=== PATIENT | female | born 1955 | race African-American/Black ===

== ENCOUNTER → 2016-03-29 | Outpatient (CLI) | payer OTHER ==
[~2016-03-29] MED LIST: ADAL40PE SQ; ERGO500012 PO; LISI10TA2 PO; MELO-156 PO; METO-269 PO; PRAV20TA2 PO; SPIR25TA3 PO; TORS20TA2 PO
--- NOTE | 2016-03-29 14:02 | KCIC ---
Bilateral digital screening mammograms with CAD: HISTORY Routine screening. COMPARISON Comparison is made to previous study dated 07/17/2013. FINDINGS Breast density category A. The skin and nipples show no abnormalities. No abnormal lymph nodes are seen in the axilla. The breast parenchyma is predominately fatty. There are no dominant masses, suspicious calcifications or architectural distortions. IMPRESSION No evidence of malignancy. Recommend routine annual mammographic screening. This study was interpreted with the benefit of Computerized Aided Detection (CAD). Mammography is not 100% sensitive in detecting breast cancer. Therefore, a self breast exam and a clinical breast exam are very important. A negative mammogram does not negate a clinically suspicious finding and should not result in a delay in biopsying a clinically suspicious abnormality. BI-RADS category 1. Negative. This patient's information has been entered into a reminder system for the patient to be notified with the results of this examination and a target date for her next mammograms. Electronically signed by: Mercedes Goodwin MD (Mar 29, 2016 14:00:31)
== END | disposition home or self-care (01) ==
LOC: KCIC MAMMO 09:34
PROVIDERS: ATTEND Family Medicine
DX: Z12.31 Encounter for screening mammogram for malignant neoplasm of breast (principal)
CPT/HCPCS: 77052; G0202

== ENCOUNTER → 2016-04-04 | Outpatient (CLI) | payer OTHER ==
[2016-04-01 14:24] VITALS: BP 141/55
[~2016-04-04] MED LIST changes: +IOHEXOL 300 MG/ML 100ML VIAL. IV ONE
--- NOTE | 2016-04-04 16:54 | RAD ---
CT pulmonary angiogram with contrast History: Shortness of breath and chest pain for 5 days. Comparison: None. Technique: Helical CT angiogram of the chest with attention to the pulmonary arteries was performed after the administration of intravenous contrast, 75 mL Omnipaque 300. Axial 2-D reconstructions were obtained. Coronal 3-D MIPS were also obtained. One or more of the following individualized dose reduction techniques were utilized for the study: Automated exposure control Adjustment of mA and/or kV according to patient's size Use of iterative reconstruction technique. Findings: Pulmonary arteries are adequately opacified. There is no evidence of pulmonary embolism. Mild aortic atherosclerosis is present. Heart and pericardium are unremarkable. No pneumothorax or pleural effusion is seen. Trachea and mainstem bronchi appear patent. Mild atelectasis versus scarring is seen in the lingula. Both lower lobes demonstrate mild, somewhat geographic areas of nonspecific groundglass opacity. Additional foci of groundglass opacity can be seen involving the left upper lobe. Left adrenal gland demonstrates 2.2 cm lipid rich adenoma. Left hepatic lobe demonstrates a few small low-attenuation lesions, which are not adequately characterized on this examination. Multiple thoracic levels demonstrate marginal disc osteophytes. Impression: 1. No evidence of pulmonary embolism. 2. Both lungs demonstrate mild nonspecific groundglass opacity, which could represent asymmetric atelectasis versus mild nonspecific infectious process.
== END | disposition home or self-care (01) ==
LOC: CT 15:35
PROVIDERS: ATTEND Family Medicine
DX: I70.0 Atherosclerosis of aorta (principal); R06.02 Shortness of breath; R91.8 Other nonspecific abnormal finding of lung field; D35.02 Benign neoplasm of left adrenal gland
CPT/HCPCS: 71275; Q9967

== ENCOUNTER → 2017-06-06 | Outpatient (CLI) | payer OTHER | END | disposition home or self-care (01) | LOC: KCIC US 07:50 | DX: K76.89 Other specified diseases of liver (principal) | CPT/HCPCS: 76700 ==

== ENCOUNTER → 2017-06-29 | Outpatient (CLI) | payer OTHER ==
[2017-06-29] MEDS: IOHEXOL 300 MG/ML 100ML VIAL. IV (14:21)
[2017-06-29] MEDS: IOHEXOL 240 MG/ML 50ML VIAL. PO (14:21)
== END | disposition home or self-care (01) ==
LOC: KCIC CT 12:58
DX: K76.89 Other specified diseases of liver (principal); I10 Essential (primary) hypertension; Z87.442 Personal history of urinary calculi; Z87.891 Personal history of nicotine dependence
CPT/HCPCS: 74177; Q9966; Q9967

== ENCOUNTER → 2017-09-01 | Outpatient (CLI) | payer OTHER ==
[2017-09-01] MEDS: SINCALIDE 2 MCG in IV NORMAL SALINE 50ML 30 ML IV (09:48)
== END | disposition home or self-care (01) ==
LOC: US 07:37
DX: N13.39 Other hydronephrosis (principal); I10 Essential (primary) hypertension; R56.9 Unspecified convulsions; Z79.01 Long term (current) use of anticoagulants; Z87.891 Personal history of nicotine dependence
CPT/HCPCS: 76705; 78226; 96374; 96375; A9537; J2805

== ENCOUNTER 2017-09-26 14:56 | Emergency (ER) | payer OTHER ==
[2017-09-26 15:52] LABS: BILIRUBIN,URINE NEGATIVE (NEG); CLARITY,URINE CLEAR; COLOR,URINE YELLOW; GLUCOSE,URINE NEGATIVE (NEG); NITRITE,URINE NEGATIVE (NEG); PH,URINE 6.5; PROTEIN,URINE NEGATIVE (NEG-TRACE)
[2017-09-26 16:00] LABS: BACTERIA,URINE FEW /HPF (0-FEW); RBC,URINE >40 /HPF (0-2); SQUAMOUS EPITHELIAL CELL,UR FEW /LPF
[2017-09-26] MEDS: fentaNYL PF VIAL 100 MCG/2 ML VIAL IV (16:00)
[2017-09-26 16:05] LABS: ADD MAN DIFF? NO
[2017-09-26 16:07] LABS: BASO # 0.1 x10^3/uL (0.0-0.2); BASO % 1 % (0-3); EOS # 0.5 x10^3/uL (0.0-0.7); EOS % 5 % (0-3); HEMATOCRIT 40.7 % (36.0-47.0); HEMOGLOBIN 13.7 g/dL (12.0-15.5); LYMPH # 3.9 x10^3/uL (1.0-4.8); LYMPH % 39 % (24-48); MEAN CORPUSCULAR HEMOGLOBIN 26 pg (25-35); MEAN CORPUSCULAR HGB CONC 34 g/dL (31-37); MEAN CORPUSCULAR VOLUME 77 fL (79-100); MONO # 0.6 x10^3/uL (0.0-1.1); MONO % 6 % (0-9); NEUT % 50 % (31-73); PLATELET COUNT 225 x10^3/uL (140-400); RED BLOOD COUNT 5.28 x10^6/uL (3.50-5.40); RED CELL DISTRIBUTION WIDTH 14.2 % (11.5-14.5)
[2017-09-26 16:15] LABS: ANION GAP 7 (6-14); BLOOD UREA NITROGEN 14 mg/dL (7-20); BUN/CREATININE RATIO 13 (6-20); CALCIUM 8.9 mg/dL (8.5-10.1); CARBON DIOXIDE 27 mmol/L (21-32); CHLORIDE 103 mmol/L (98-107); CREATININE 1.1 mg/dL (0.6-1.0); GFR 61.5; GLUCOSE 86 mg/dL (70-99); POTASSIUM 3.5 mmol/L (3.5-5.1); SODIUM 137 mmol/L (136-145)
[2017-09-26 16:21] LABS: ALBUMIN 3.4 g/dL (3.4-5.0); ALBUMIN/GLOBULIN RATIO 0.8 (1.0-1.7); ALK PHOS 99 U/L (46-116); ALT (SGPT) 18 U/L (14-59); AST (SGOT) 13 U/L (15-37); LIPASE 109 U/L (73-393); TOTAL BILIRUBIN 0.3 mg/dL (0.2-1.0); TOTAL PROTEIN 7.5 g/dL (6.4-8.2)
== END 2017-09-26 17:15 | disposition home or self-care (01) ==
LOC: ER 14:56
DX: N13.30 Unspecified hydronephrosis (principal); I10 Essential (primary) hypertension; E78.00 Pure hypercholesterolemia, unspecified; Z86.73 Personal history of transient ischemic attack (TIA), and cerebral infarction without residual deficits; Z90.710 Acquired absence of both cervix and uterus; Z88.1 Allergy status to other antibiotic agents
CPT/HCPCS: 36415; 80053; 81001; 83690; 85025; 99284

== ENCOUNTER → 2017-09-26 | Outpatient (CLI) | payer OTHER ==
[2017-09-26] MEDS: FUROSEMIDE 40 MG/4 ML VIAL. IVP (08:54)
== END | disposition home or self-care (01) ==
LOC: NM 08:03
DX: N13.39 Other hydronephrosis (principal); I10 Essential (primary) hypertension; E78.00 Pure hypercholesterolemia, unspecified
CPT/HCPCS: 78708; 96374; 96375; A9562; J1940

== ENCOUNTER → 2017-09-29 | Day surgery (SDC) | payer OTHER ==
[~2017-09-29] MED LIST changes: -ADAL40PE SQ; +DESFLURANE 31 TO 60 MINUTES IH; +DEXAMETHASONE SOD PHOS 20 MG/5 ML VIAL.; -ERGO500012 PO; +FAMOTIDINE 20 MG/2 ML VIAL; -IOHEXOL 300 MG/ML 100ML VIAL. IV ONE; +IV RINGERS,LACTATED 1000ML 1,000 ML IV; +KETAMINE HCL 500 MG/10 ML VIAL.; +KETOROLAC 30 MG/ML INJ FOR OR. INJ; +LIDOCAINE 1% PF 2 ML VIAL. ID; +LIDOCAINE 2% JELLY 6ML IN APPLICATOR.; +LIDOCAINE 2% PF Vial for OR 5 ML VIAL.; -LISI10TA2 PO; -MELO-156 PO; -METO-269 PO; +MIDAZOLAM HCL/PF 2 MG/2 ML VIAL.; +MORPHINE SULFATE 2 MG/ML DISP.SYRIN. IV; +ONDANSETRON PF 4 MG/2 ML VIAL.; +ONDANSETRON PF 4 MG/2 ML VIAL. IV; -PRAV20TA2 PO; +PROCHLORPERAZINE 10 MG/2 ML VIAL. IV; +PROPOFOL 20 ML IV; -SPIR25TA3 PO; +SULFAMETH/TRIMETH 20 ML in IV DEXTROSE 5% 500 ML IV; -TORS20TA2 PO; +fentaNYL PF VIAL 100 MCG/2 ML VIAL IV
[2017-09-29] MEDS: IV RINGERS,LACTATED 1000ML 1,000 ML IV (12:50)
[2017-09-29] MEDS: hydrALAZINE 20 MG/ML VIAL. IVP ×2 (14:50→15:20)
[2017-09-29] MEDS: IOHEXOL 300 MG/ML 100ML VIAL. (15:26)
== END | disposition home or self-care (01) ==
LOC: SURG 12:05
DX: N13.30 Unspecified hydronephrosis (principal); J44.9 Chronic obstructive pulmonary disease, unspecified; I10 Essential (primary) hypertension; E78.00 Pure hypercholesterolemia, unspecified; M06.9 Rheumatoid arthritis, unspecified; Z87.440 Personal history of urinary (tract) infections; Z88.8 Allergy status to other drugs, medicaments and biological substances; Z90.5 Acquired absence of kidney; Z90.710 Acquired absence of both cervix and uterus; Z98.890 Other specified postprocedural states; Z98.51 Tubal ligation status; Z87.891 Personal history of nicotine dependence; Z87.01 Personal history of pneumonia (recurrent); Z87.442 Personal history of urinary calculi; Z86.73 Personal history of transient ischemic attack (TIA), and cerebral infarction without residual deficits
CPT/HCPCS: 52332; 74420; A7015; C1769; C2617; J0360; J1100; J1885; J2001; J2250; J2405; J2704; J3490; J7120; Q9967; S0028

== ENCOUNTER → 2017-12-26 | Outpatient (CLI) | payer OTHER ==
[2017-09-29 15:36] VITALS: BP 156/82
[~2017-12-26] MED LIST changes: +ADAL40PE SQ; +ASPI-630 PO; -DESFLURANE 31 TO 60 MINUTES IH; -DEXAMETHASONE SOD PHOS 20 MG/5 ML VIAL.; +ERGO500027 PO; -FAMOTIDINE 20 MG/2 ML VIAL; +HYDR-971 PO; -IV RINGERS,LACTATED 1000ML 1,000 ML IV; -KETAMINE HCL 500 MG/10 ML VIAL.; -KETOROLAC 30 MG/ML INJ FOR OR. INJ; -LIDOCAINE 1% PF 2 ML VIAL. ID; -LIDOCAINE 2% JELLY 6ML IN APPLICATOR.; -LIDOCAINE 2% PF Vial for OR 5 ML VIAL.; +LISI10TA2 PO; +MELO7.5T29 PO; +METO-269 PO; -MIDAZOLAM HCL/PF 2 MG/2 ML VIAL.; -MORPHINE SULFATE 2 MG/ML DISP.SYRIN. IV; -ONDANSETRON PF 4 MG/2 ML VIAL.; -ONDANSETRON PF 4 MG/2 ML VIAL. IV; +PRAV20TA2 PO; -PROCHLORPERAZINE 10 MG/2 ML VIAL. IV; -PROPOFOL 20 ML IV; +SPIR25TA5 PO; -SULFAMETH/TRIMETH 20 ML in IV DEXTROSE 5% 500 ML IV; +TORS20TA2 PO; -fentaNYL PF VIAL 100 MCG/2 ML VIAL IV
--- NOTE | 2017-12-26 12:53 | KCIC ---
Bilateral digital screening mammograms: Reason for examination: Routine screening. Comparison is made to previous studies dated 03/29/2016 and 07/17/2013. Interpretation is made with the benefit of CAD. The skin and nipples show no abnormalities. No abnormal lymph nodes are seen. The breast parenchyma is predominantly fatty. (Breast density: Category A.) There are no dominant masses, suspicious calcifications or architectural distortions. Impression: No evidence of malignancy. Recommend routine screening. BI-RADS Category 1: Negative. "Our facility is accredited by the [employer] Mammography [employer]." This patient's information has been entered into a reminder system for the patient to be notified with the results of her examination and a target date for the next mammogram. Electronically signed by: Tess Goodwin MD (12/26/2017 12:49 PM) [id number]
--- NOTE | 2017-12-26 12:53 | KCIC ---
Bone densitometry 12/26/2017 9:00 AM Indication: Postmenopausal screening Comparison Study: None. Discussion: Bone Densitometry was performed with dual photon absorption of the lumbar spine and proximal left femur. Lumbar Spine: Bone average density is 0.692g/cm2 for L1-L4. T-Score is -3.2. Left femoral neck: Bone average density is 0.960 g/cm2. T-Score is 0.1. IMPRESSION: Osteoporosis based on decreased bone mineral density lumbar spine. Fracture risk is high. Note: Definitions established by the World Health Organization: Normal: T-score is -1.0 or above. Osteopenia: T-score is between -1.0 and -2.5. Osteoporosis: T-score is -2.5 or below. Electronically signed by: Jd Diop MD (12/26/2017 12:49 PM) [id number]
== END | disposition home or self-care (01) ==
LOC: KCIC DEXA 08:51
PROVIDERS: ATTEND Physician Assistant Surgical
DX: Z12.31 Encounter for screening mammogram for malignant neoplasm of breast (principal); Z13.820 Encounter for screening for osteoporosis; M81.8 Other osteoporosis without current pathological fracture; I10 Essential (primary) hypertension; E78.5 Hyperlipidemia, unspecified; E78.00 Pure hypercholesterolemia, unspecified; Z87.442 Personal history of urinary calculi; Z87.440 Personal history of urinary (tract) infections; Z87.891 Personal history of nicotine dependence; Z90.710 Acquired absence of both cervix and uterus; Z88.1 Allergy status to other antibiotic agents; Z88.8 Allergy status to other drugs, medicaments and biological substances
CPT/HCPCS: 77067; 77080

== ENCOUNTER → 2020-10-15 | Outpatient (CLI) | payer OTHER ==
[2017-09-29 15:36] VITALS: BP 156/82
[~2020-10-15] MED LIST changes: +HYDR-3164 PO; -HYDR-971 PO; +LISI10TA16 PO; -LISI10TA2 PO
--- NOTE | 2020-10-16 18:24 | KCIC ---
Bilateral digital screening mammograms: Reason for examination: Routine screening. Comparison is made to previous studies dated back to 07/17/2013. Interpretation is made with the benefit of CAD. The skin and nipples show no abnormalities. No abnormal lymph nodes are seen. The breast parenchyma i s predominantly fatty. (Breast density: Category A.) There are no dominant masses, suspicious calcifi cations or architectural distortions. Impression: No evidence of malignancy. Recommend routine screening. BI-RADS Category 1: Negative. "Our facility is accredited by the [employer] Mammography [employer]." This patient's information has been entered into a reminder system for the patient to be notified wit h the results of her examination and a target date for the next mammogram. Electronically signed by: Tess Goodwin MD (10/16/2020 6:21 PM) [id number]
== END ==
LOC: KCIC MAMMO 12:30
PROVIDERS: ATTEND Family Medicine
DX: Z12.31 Encounter for screening mammogram for malignant neoplasm of breast (principal)
CPT/HCPCS: 77067